=== PATIENT | female | born 1955 | race Caucasian/White ===

== ENCOUNTER → 2018-01-11 | Outpatient (CLI) | payer BC ==
[2018-01-11 13:25] LABS: BLOOD UREA NITROGEN 11 mg/dl (7-18)
== END | disposition home or self-care (01) ==
LOC: C.LAB 11:59
PROVIDERS: ATTEND Family Medicine
DX: R41.3 Other amnesia (principal)

== ENCOUNTER → 2018-01-15 | Outpatient (CLI) | payer BC ==
[~2018-01-15] MED LIST: GADAVIST IV PRN
--- NOTE | 2018-01-15 22:59 | DIAGNOSTIC IMAGING REPORT ---
MRI OF THE BRAIN WITHOUT AND WITH IV CONTRAST CLINICAL HISTORY: Memory disorder. COMPARISON STUDY: No previous studies for comparison. TECHNIQUE: Utilizing a 1.5 Hope magnet and dedicated coil, multiplanar, multiecho imaging of the brain was performed pre and postcontrast administration. IV administration of 5.6 mL of Gadavist contrast was uneventful. FINDINGS: There are no foci of restricted diffusion. No acute intracranial hemorrhage, midline shift or mass effect is present. Ventricular system is normal. The basilar cisterns are patent. There is mild atrophy. Mild white matter T2 hyperintensity suggest small vessel disease. Note is made of an old 1 cm lacunar infarct within the right caudate nucleus. No intracranial mass or pathologic enhancement is present. Flow-voids for the major intracranial vessels are present. Calvarial signal is within normal limits. There is mild mucosal thickening of the maxillary sinuses. IMPRESSION: 1. No acute intracranial findings. 2. No intracranial mass or pathologic enhancement. 3. Mild atrophy and mild small vessel disease. 4. Old lacunar infarct within the right caudate nucleus. Electronically signed by: Reyes Mata M.D. 01/15/2018 10:58 PM Dictated Date/Time: 01/15/2018 10:54 PM
== END | disposition home or self-care (01) ==
LOC: C.MRI 17:03
PROVIDERS: ATTEND Family Medicine
DX: R41.3 Other amnesia (principal)